=== PATIENT | male | born 1970 | race Caucasian/White ===

== ENCOUNTER → 2019-04-19 | Outpatient (REF) | payer OTHER ==
[2019-04-20 10:12] LABS: H PYLORI QUALITATIVE IgG NEGATIVE (NEGATIVE)
== END ==
LOC: M LAB REF 16:52
PROVIDERS: ATTEND Internal Medicine
DX: R10.11 Right upper quadrant pain (principal)

== ENCOUNTER 2019-07-26 09:12 | Day surgery (SDC) | payer OTHER ==
[~2019-07-26] VITALS: Ht 177.8 cm; Wt 87.5 kg
[~2019-07-26 09:12] MED LIST: CYMB60CA3 PO; NS 1,000 ML IV ONE; OMEP40CA97 PO; ROSU10TA6 PO
[2019-07-26] MEDS ORDERED: PROPOFOL 200 MG/20 ML VIAL As Ordered ONE (10:02)
[2019-07-26] MEDS ORDERED: LIDOCAINE 2% INJ 100 MG/5 ML SDV (FOR ANES.) As Ordered ONE (10:02)
[2019-07-26] MEDS ORDERED: fentaNYL 100 MCG/2 ML INJECTION (J3010) As Ordered ONE (10:17)
[2019-07-26] MEDS ORDERED: ACET1TAB55 PO (10:26)
--- NOTE | 2019-07-26 11:21 | ROOR ---
Patient Name: Casey Melton Procedure Date: 07/26/2019 11:08 AM Date of : 1970 Age: 48 Room: [facility] Gender: Male Note Status: Finalized Procedure: Upper GI endoscopy Indications: Suspected esophageal reflux Providers: Sean Lucas Jr, MD Referring MD: Lilia Woodson DO Requesting Provider: Medicines: Propofol per Anesthesia Complications: No immediate complications. Procedure: Pre-Anesthesia Assessment: - Prior to the procedure, a History and Physical was performed, and patient medications and allergies were reviewed. The patient is competent. The risks and benefits of the procedure and the sedation options and risks were discussed with the patient. All questions were answered and informed consent was obtained. Patient identification and proposed procedure were verified by the physician and the nurse in the pre-procedure area and in the procedure room. Mental Status Examination: alert and oriented. Airway Examination: normal oropharyngeal airway and neck mobility. Respiratory Examination: clear to auscultation. CV Examination: normal. ASA Grade Assessment: II - A patient with mild systemic disease. After reviewing the risks and benefits, the patient was deemed in satisfactory condition to undergo the procedure. The anesthesia plan was to use moderate sedation / analgesia (conscious sedation). Immediately prior to administration of medications, the patient was re-assessed for adequacy to receive sedatives. The heart rate, respiratory rate, oxygen saturations, blood pressure, adequacy of pulmonary ventilation, and response to care were monitored throughout the procedure. The physical status of the patient was re-assessed after the procedure. The Endoscope was introduced through the mouth, and advanced to the second part of duodenum. The upper GI endoscopy was accomplished without difficulty. The patient tolerated the procedure well. Findings: The upper third of the esophagus, middle third of the esophagus and lower third of the esophagus were normal. The cardia, gastric fundus, gastric body, gastric antrum, prepyloric region of the stomach and pylorus were normal. The duodenal bulb, first portion of the duodenum and second portion of the duodenum were normal. Impression: - Normal upper third of esophagus, middle third of esophagus and lower third of esophagus. - Normal cardia, gastric fundus, gastric body, antrum, prepyloric region of the stomach and pylorus. - Normal duodenal bulb, first portion of the duodenum and second portion of the duodenum. - No specimens collected. Recommendation: - Discharge patient to home (ambulatory). Sean Lucas MD Sean Lucas Jr, MD 07/26/2019 11:21:40 AM Electronically signed by Sean Lucas Jr, MD Number of Addenda: 0 Note Initiated On: 07/26/2019 11:08 AM Estimated Blood Loss: Estimated blood loss: none.
--- NOTE | 2019-07-26 11:42 | ROOR ---
Patient Name: Casey Melton Procedure Date: 07/26/2019 11:08 AM Date of : 1970 Age: 48 Room: [facility] Gender: Male Note Status: Finalized Procedure: Colonoscopy Indications: Screening for colorectal malignant neoplasm, Screening in patient at increased risk: Family history of 1st-degree relative with colorectal cancer before age 60 years Providers: Sean Lucas Jr, MD Referring MD: Lilia Woodson DO Requesting Provider: Medicines: Propofol per Anesthesia Complications: No immediate complications. Procedure: Pre-Anesthesia Assessment: - Prior to the procedure, a History and Physical was performed, and patient medications and allergies were reviewed. The patient is competent. The risks and benefits of the procedure and the sedation options and risks were discussed with the patient. All questions were answered and informed consent was obtained. Patient identification and proposed procedure were verified by the physician and the nurse in the pre-procedure area and in the procedure room. Mental Status Examination: alert and oriented. Airway Examination: normal oropharyngeal airway and neck mobility. Respiratory Examination: clear to auscultation. CV Examination: normal. ASA Grade Assessment: II - A patient with mild systemic disease. After reviewing the risks and benefits, the patient was deemed in satisfactory condition to undergo the procedure. The anesthesia plan was to use moderate sedation / analgesia (conscious sedation). Immediately prior to administration of medications, the patient was re-assessed for adequacy to receive sedatives. The heart rate, respiratory rate, oxygen saturations, blood pressure, adequacy of pulmonary ventilation, and response to care were monitored throughout the procedure. The physical status of the patient was re-assessed after the procedure. The Colonoscope was introduced through the anus and advanced to the cecum, identified by appendiceal orifice and ileocecal valve. The colonoscopy was performed without difficulty. The patient tolerated the procedure well. The quality of the bowel preparation was adequate. Findings: The rectum, sigmoid colon, descending colon, transverse colon, ascending colon, cecum, appendiceal orifice and ileocecal valve appeared normal. A diminutive polyp was found in the hepatic flexure. The polyp was hyperplastic. The polyp was removed with a jumbo cold forceps. Resection and retrieval were complete. Impression: - The rectum, sigmoid colon, descending colon, transverse colon, ascending colon, cecum, appendiceal orifice and ileocecal valve are normal. - One diminutive polyp at the hepatic flexure, removed with a jumbo cold forceps. Resected and retrieved. Recommendation: - Discharge patient to home (ambulatory). - Repeat colonoscopy in 5 years for screening purposes. Sean Lucas MD Sean Lucas Jr, MD 07/26/2019 11:42:18 AM Electronically signed by Sean Lucas Jr, MD Number of Addenda: 0 Note Initiated On: 07/26/2019 11:08 AM Estimated Blood Loss: Estimated blood loss: none.
[2019-07-26 12:00] VITALS: BP 149/96
== END 2019-07-26 12:10 | disposition home or self-care (01) ==
LOC: M OPP 09:12
PROVIDERS: ATTEND Surgery
DX: Z12.11 Encounter for screening for malignant neoplasm of colon (principal); Z80.0 Family history of malignant neoplasm of digestive organs; Z86.010 Personal history of colon polyps; D12.3 Benign neoplasm of transverse colon; K21.9 Gastro-esophageal reflux disease without esophagitis; Z79.899 Other long term (current) drug therapy; F17.210 Nicotine dependence, cigarettes, uncomplicated
CPT/HCPCS: 43235; 45380; 88305; J3010

== ENCOUNTER → 2020-07-31 | Outpatient (REF) | payer OTHER ==
[~2020-07-31] MED LIST changes: +ACET1TAB55 PO; -NS 1,000 ML IV ONE
[2020-07-31 13:42] LABS: PERCENT SATURATION 25.4 % (19.7-50.0)
== END ==
LOC: M LAB REF 12:35
PROVIDERS: ATTEND Internal Medicine
DX: R53.83 Other fatigue (principal)

== ENCOUNTER → 2021-01-29 | Outpatient (REF) | payer OTHER | LOC: M LAB REF 12:42 | PROVIDERS: ATTEND Internal Medicine | DX: G89.29 Other chronic pain (principal) ==

== ENCOUNTER → 2021-02-10 | Outpatient (CLI) | payer OTHER ==
--- NOTE | 2021-02-10 10:35 | REP ---
INDICATION: LUNG SCREENING COMPARISON: 02/16/2019 TECHNIQUE: PA and lateral. FINDINGS: The mediastinum and cardiac silhouette are normal. The lung reno are clear and without acute consolidation, effusion, or pneumothorax. The skeletal structures are intact and normal. IMPRESSION: No acute cardiopulmonary process. <Electronically signed by Urbano Loredo > 02/10/21 1033
--- NOTE | 2021-02-10 10:51 | REP ---
INDICATION: LUNG SCREENING-CT FIRST COMPARISON: 11/07/2019, 02/28/2019 TECHNIQUE: Axial noncontrast images from the thoracic inlet to the upper abdomen using low-dose lung screening technique (LDCT). FINDINGS: Bilateral lung reno are well aerated, relatively symmetric and essentially clear. Very small nonsolid nodular opacities measuring up to approximately 3 mm are stable. No acute consolidation, significant nodule, or mass. Tracheobronchial tree is patent. No effusion. No pneumothorax. IMPRESSION: Lung rads category 2. Management recommendations include annual low-dose CT surveillance. <Electronically signed by Urbano Loredo > 02/10/21 1042
== END ==
LOC: M RAD 09:58
PROVIDERS: ATTEND Internal Medicine
DX: Z12.2 Encounter for screening for malignant neoplasm of respiratory organs (principal)

== ENCOUNTER → 2021-12-16 | Outpatient (REF) ==
[~2021-12-16] MED LIST changes: -CYMB60CA3 PO; +CYMB60CA4 PO; +OMEP40CA4 PO; -OMEP40CA97 PO
== END ==
LOC: M PLAIMG 12:50
PROVIDERS: ATTEND Internal Medicine
DX: Z00.00 Encounter for general adult medical examination without abnormal findings (principal)

== ENCOUNTER → 2022-03-24 | Outpatient (CLI) | payer OTHER | LOC: M RAD 12:46 | PROVIDERS: ATTEND Internal Medicine | DX: Z87.891 Personal history of nicotine dependence (principal) ==

== ENCOUNTER → 2023-03-16 | Outpatient (CLI) | payer OTHER | LOC: M WUC 08:02 | PROVIDERS: ATTEND Internal Medicine | DX: R05.9 Cough, unspecified (principal) ==

== ENCOUNTER 2023-04-14 10:06 | Day surgery (SDC) | payer OTHER ==
[~2023-04-14] VITALS: Ht 182.9 cm; Wt 91.0 kg
[~2023-04-14 10:06] MED LIST changes: +ACET-1349 PO; +ACET650T61 PO; +MONT10TA97 PO; +NS 1,000 ML IV ONE; +TREL1AER INH
[2023-04-14] MEDS ORDERED: propofoL 500 MG/50 ML VIAL As Ordered ONE (12:44)
[2023-04-14] MEDS ORDERED: LIDOCAINE 2% 100MG/5ML SDV (FOR ANES.) As Ordered ONE (12:44)
[2023-04-14] MEDS ORDERED: SIMETHICONE 40MG/0.6ML DROPS 30ML As Ordered ONE (12:44)
[2023-04-14 13:05] VITALS: BP 165/98; O2SAT 98
== END 2023-04-14 13:14 | disposition home or self-care (01) ==
LOC: M OPP 10:06
PROVIDERS: ATTEND Surgery
DX: Z12.11 Encounter for screening for malignant neoplasm of colon (principal); Z86.010 Personal history of colon polyps; Z80.0 Family history of malignant neoplasm of digestive organs; D12.6 Benign neoplasm of colon, unspecified; K57.30 Diverticulosis of large intestine without perforation or abscess without bleeding; F17.200 Nicotine dependence, unspecified, uncomplicated; Z79.02 Long term (current) use of antithrombotics/antiplatelets

== ENCOUNTER → 2023-04-28 | Outpatient (CLI) | payer OTHER ==
[~2023-04-28] MED LIST changes: -NS 1,000 ML IV ONE
== END ==
LOC: M RAD 13:29
PROVIDERS: ATTEND Internal Medicine
DX: Z12.2 Encounter for screening for malignant neoplasm of respiratory organs (principal); F17.210 Nicotine dependence, cigarettes, uncomplicated

== ENCOUNTER → 2024-08-13 | Outpatient (CLI) | payer OTHER ==
[~2024-08-13] MED LIST changes: -ROSU10TA6 PO; +ROSU10TA61 PO
== END ==
LOC: M RAD 10:25
PROVIDERS: ATTEND Internal Medicine
DX: F17.210 Nicotine dependence, cigarettes, uncomplicated (principal)